=== PATIENT | female | born 1970 | race Caucasian/White ===

== ENCOUNTER → 2016-03-31 | Outpatient (CLI) | payer OTHER ==
[~2016-03-31] MED LIST: ATORVASTATIN CA20 M1 PO; BACTRIM DS 8001 TAB PO; BISOPROLOL FUMA10 MG PO; CIPRO 250MG TA250 MG PO; CYMBALTA20 MG PO; EFFIENT10 M1 PO; KLONOPIN 0.5MG0.5 MG NG; LOW DOSE ASPIRI81 MG PO; NOMEDS XX; ZOFRAN 8MG TABLE8 MG PO
[2016-03-31 09:45] LABS: BILIRUBIN, INDIRECT 0.19 mg/dL (0-0.9); BUN 14 mg/dL (7-18)
[2016-03-31 09:51] LABS: GFR (ESTIMATED) 90 ML/MIN (59-)
== END ==
LOC: LAB 08:38
PROVIDERS: Internal Medicine
DX: I25.10 Atherosclerotic heart disease of native coronary artery without angina pectoris (principal); I10 Essential (primary) hypertension; E78.5 Hyperlipidemia, unspecified; Z72.0 Tobacco use

== ENCOUNTER 2016-04-04 07:21 | Emergency (ER) | payer OTHER ==
[~2016-04-04] VITALS: Ht 170.2 cm; Wt 74.4 kg
[~2016-04-04 07:21] MED LIST changes: -KLONOPIN 0.5MG0.5 MG NG
--- NOTE | 2016-04-04 08:28 | Emergency Room Report ---
History of Present Illness Time Seen by 08 Presenting Problem in Triage Pt arrived:Walked Presenting Problem:PT STATES BP HAS BEEN ELEVATED SINCE YESTERDAY. PT STATES HAS BEEN ANXIOUS SINCE YESTERDAY MORNING R/T FAMILY SITUATION. PT STATES HAD A HEADACHE YESTERDAY. PT STATES HAS BEEN CHECKING HER BP FREQUENTLY SINCE YESTERDAY STATES ALL READINGS HAVE BEEN ELEVATED. 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 N Clinical Suspician of Infection? N Mental Status: 1 - Regular (Normal Baseline) Sepsis Risk:Low Sepsis Risk Have you (or family members/close friends) recently traveled outside the [place]? N If Yes, where/when: Have you had exposure to infectious disease within the past month? N TB? Other? Specify: Source patient, RN notes reviewed, family, old records Exam Limitations no limitations Comment pt with recent card stents and has been doing ok but has been anxious sec to her illness and family crisis- no syncope or focal changes - Cardiac Chest Pain Chest pain indicative of cardiac No Timing/Duration this evening Severity moderate ALLERGIES Coded Allergies: lisinopril (Mild, COUGH 09/05/15) Home Medications Reported Medications Atorvastatin Calcium 20 MG PO #30 Bisoprolol Fumarate 10 MG PO QHS #30 TAB Prasugrel Hydrochloride (Effient) 10 MG PO DAILY #30 Aspirin (Aspirin EC) 81 MG PO DAILY #30 History Medical History General CAD? Yes Angina: No [place]: No Hypertension? Yes Hyperlipidemia? No CHF? No DVT? No PE? No COPD? No Asthma? No Anemia? No GERD? No Gastric ulcers? No GI Bleed? No Hernia? No Thyroid Problems? No Hypothyroidism? No CVA? No Seizures? No Diabetes? No Insulin Dependent: No Insulin Pump: No Home FSBS? No Renal Insuffiency? No End Stage Renal Disease? No UTI? No Stones? No BPH? No GB Disease: No Nephritic Syndrome? No Asplenia? No Hepatitis? No Sickle Cell Disease? No Arthritis? No Migraines? No Cataracts? No Glaucoma? No MRSA? No HIV? No TB? No Anxiety? Yes Depression? No Cancer? 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 Respiratory denies cough, denies shortness of breath, denies wheezing Cardiovascular denies chest pain, denies palpitations Gastrointestinal denies abdominal pain, denies diarrhea, denies vomiting Genitourinary denies: dysuria, frequency, hesitancy, hematuria. Musculoskeletal denies back pain, denies joint pain, denies joint swelling, denies neck pain Skin denies rash Psychiatric/Neurological see HPI, anxiety, denies headache, denies seizure Physical Exam Vital Signs Vital Signs Date Time Temp Pulse Resp B/P Pulse O2 O2 Flow FiO2 Ox Delivery Rate 04/04 0836 72 18 142/64 99 04/04 0727 98.4 84 18 127/99 97 - WBC >12,000 or <4,000 or 10% bands? 2 or more SIRS Criteria Met? B/P:142/64 MAP:108 Creatinine >2.0? UA output<0.5ml/kg/hr for 2 hrs? Platelet count >100,000? Lactate >2.0mmol/1? INR >1.2 or PTT > than 60 sec? Evidence of Organ Dysfunction? Provider documented clinical suspician of infection? N Sepsis Criteria Count: 0 Sepsis Risk: Low Sepsis Risk General Appearance no apparent distress Eye Exam - bilateral eye PERRL, bilateral eye EOMI Ear, Nose, Throat normal ENT inspection Neck supple Respiratory Status No: respiratory distress. Lung Sounds bilateral: lungs clear. 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 No Departure Departure Time of Disposition 0839 Disposition DC Home or Self Care(routine) Clinical Impression Primary Impression: Anxiety as acute reaction to exceptional stress Condition STABLE Referrals Rolanda COY,Son Boom (Family) Patient Instructions DI for Anxiety -- Adult Additional Instructions use meds and see pcp this week Discharge Counseling Counseled pt/family regarding diagnosis, test results, medications/RX, follow up needs Prescriptions Current Visit Scripts Clonazepam (Klonopin 0.5MG) 0.5 MG NG BID #10 TAB ED Critical Care Critical Care No at 0898
--- NOTE | 2016-04-04 08:28 | Emergency Room Report ---
History of Present Illness Time Seen by 08 Presenting Problem in Triage Pt arrived:Walked Presenting Problem:PT STATES BP HAS BEEN ELEVATED SINCE YESTERDAY. PT STATES HAS BEEN ANXIOUS SINCE YESTERDAY MORNING R/T FAMILY SITUATION. PT STATES HAD A HEADACHE YESTERDAY. PT STATES HAS BEEN CHECKING HER BP FREQUENTLY SINCE YESTERDAY STATES ALL READINGS HAVE BEEN ELEVATED. 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 N Clinical Suspician of Infection? N Mental Status: 1 - Regular (Normal Baseline) Sepsis Risk:Low Sepsis Risk Have you (or family members/close friends) recently traveled outside the [place]? N If Yes, where/when: Have you had exposure to infectious disease within the past month? N TB? Other? Specify: Source patient, RN notes reviewed, family, old records Exam Limitations no limitations Comment pt with recent card stents and has been doing ok but has been anxious sec to her illness and family crisis- no syncope or focal changes - Cardiac Chest Pain Chest pain indicative of cardiac No Timing/Duration this evening Severity moderate ALLERGIES Coded Allergies: lisinopril (Mild, COUGH 09/05/15) Home Medications Reported Medications Atorvastatin Calcium 20 MG PO #30 Bisoprolol Fumarate 10 MG PO QHS #30 TAB Prasugrel Hydrochloride (Effient) 10 MG PO DAILY #30 Aspirin (Aspirin EC) 81 MG PO DAILY #30 History Medical History General CAD? Yes Angina: No [place]: No Hypertension? Yes Hyperlipidemia? No CHF? No DVT? No PE? No COPD? No Asthma? No Anemia? No GERD? No Gastric ulcers? No GI Bleed? No Hernia? No Thyroid Problems? No Hypothyroidism? No CVA? No Seizures? No Diabetes? No Insulin Dependent: No Insulin Pump: No Home FSBS? No Renal Insuffiency? No End Stage Renal Disease? No UTI? No Stones? No BPH? No GB Disease: No Nephritic Syndrome? No Asplenia? No Hepatitis? No Sickle Cell Disease? No Arthritis? No Migraines? No Cataracts? No Glaucoma? No MRSA? No HIV? No TB? No Anxiety? Yes Depression? No Cancer? 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 Respiratory denies cough, denies shortness of breath, denies wheezing Cardiovascular denies chest pain, denies palpitations Gastrointestinal denies abdominal pain, denies diarrhea, denies vomiting Genitourinary denies: dysuria, frequency, hesitancy, hematuria. Musculoskeletal denies back pain, denies joint pain, denies joint swelling, denies neck pain Skin denies rash Psychiatric/Neurological see HPI, anxiety, denies headache, denies seizure Physical Exam Vital Signs Vital Signs Date Time Temp Pulse Resp B/P Pulse O2 O2 Flow FiO2 Ox Delivery Rate 04/04 0836 72 18 142/64 99 04/04 0727 98.4 84 18 127/99 97 - WBC >12,000 or <4,000 or 10% bands? 2 or more SIRS Criteria Met? B/P:142/64 MAP:108 Creatinine >2.0? UA output<0.5ml/kg/hr for 2 hrs? Platelet count >100,000? Lactate >2.0mmol/1? INR >1.2 or PTT > than 60 sec? Evidence of Organ Dysfunction? Provider documented clinical suspician of infection? N Sepsis Criteria Count: 0 Sepsis Risk: Low Sepsis Risk General Appearance no apparent distress Eye Exam - bilateral eye PERRL, bilateral eye EOMI Ear, Nose, Throat normal ENT inspection Neck supple Respiratory Status No: respiratory distress. Lung Sounds bilateral: lungs clear. 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 No Departure Departure Time of Disposition 0839 Disposition DC Home or Self Care(routine) Clinical Impression Primary Impression: Anxiety as acute reaction to exceptional stress Condition STABLE Referrals Rolanda COY,Son Boom (Family) Patient Instructions DI for Anxiety -- Adult Additional Instructions use meds and see pcp this week Discharge Counseling Counseled pt/family regarding diagnosis, test results, medications/RX, follow up needs Prescriptions Current Visit Scripts Clonazepam (Klonopin 0.5MG) 0.5 MG NG BID #10 TAB ED Critical Care Critical Care No at 0883
[2016-04-04] MEDS ORDERED: KLONOPIN 0.5MG0.5 MG NG (08:51)
[2016-04-04 09:11] VITALS: BP 125/74
== END 2016-04-04 09:14 | disposition home or self-care (01) ==
LOC: ER 07:21
DX: F41.1 Generalized anxiety disorder (principal); F43.0 Acute stress reaction; I10 Essential (primary) hypertension; I25.10 Atherosclerotic heart disease of native coronary artery without angina pectoris